=== PATIENT | female | born 1975 | race Caucasian/White ===

== ENCOUNTER 2025-04-16 09:30 | Emergency (ER) | payer OTHER, SELFPAY ==
[2025-04-16 09:33] VITALS: BP 114/77
[2025-04-16 10:42] LABS: Hematocrit 34.6 % (37.0-47.0); Hemoglobin 11.8 g/dL (12.0-16.0); Mean Corp Hgb Conc. 34.1 g/dL (33.0-37.0); Mean Corpuscular Volume 92.8 fL (81.0-99.0); Nucleated Red Blood Cells % 0 %; Platelet Count 207 10^3/uL (130-400); Red Cell Dist. Width 12.6 % (11.5-14.5)
[2025-04-16 10:57] LABS: ALT (SGPT) 33 U/L (0-35); AST (SGOT) 21 U/L (14-36); Albumin 4.5 g/dl (3.5-5.0); Alkaline Phosphatase 53 U/L (38-126); Blood Urea Nitrogen 20 mg/dl (7-17); Calcium 9.1 mg/dl (8.4-10.2); Carbon Dioxide 27 mmol/L (22-30); Chloride 106 mmol/L (98-107); Glucose 95 mg/dl (70-99); Potassium 4.2 mmol/L (3.5-5.1); Sodium 139 mmol/L (135-145); Total Protein 7.1 g/dl (6.3-8.2); eGFR > 60.00
[2025-04-16 11:30] VITALS: BMI 25.9
[2025-04-16 11:32] VITALS: BP 127/89
--- NOTE | 2025-04-16 11:32 | ED.GENMED ---
History of Present Illness
<Cecilia Victoria DO - Last Filed: 04/17/25 06:07>
General
Chief Complaint: Abdominal Pain
Time Seen by Provider: 04/16/25 11:02
History of Present Illness
History of Present Illness:
49-year-old female without significant past medical history presenting for acute onset of right lower quadrant pain. Patient reports that she woke up this morning with severe right lower quadrant pain. Feels that the pain was radiating slightly to
the left lower quadrant. Reports history of in the past, otherwise no abdominal surgeries. Denies nausea or vomiting. Last bowel movement was yesterday. Denies fever. Does note that she has been passing some gas with some improvement
of symptoms. Pain however still there. Denies any history of ovarian cysts. Denies additional acute medical complaints
Phy Exam
<Cecilia Victoria DO - Last Filed: 04/17/25 06:07>
Physical Exam
Physical Exam:
General: Well-appearing, no clinical signs of dehydration, nontoxic and in no acute distress
HEENT: protecting airway
Neck: appears supple
CV: Normal heart rate, regular rhythm, no evidence of cyanosis
Resp: No accessory muscle use, no increased work of breathing, lungs clear to auscultation bilaterally
Abd: Soft and non-distended, mild tenderness to the right lower quadrant without rebound or guarding
Extremities: No deformities, no swelling
Neuro: alert, no focal neurologic deficit
: deferred
Rectal: deferred
Psych: Normal affect
Skin: Intact
Course
<Cecilia Victoria DO - Last Filed: 04/17/25 06:07>
Orders/Labs/Results
Orders:
Orders
04/16/25 10:31
CMP [Comprehensive Metabolic Panel] Urgent
Complete Blood Count/With Diff Urgent
HCG, Serum Qualitative Screen Urgent
Comment: ADD
04/16/25 11:23
Add On- LAB Urgent
Tests Added?: seru
CT Abd/pel W Iv And Oral Contr Urgent
Comment:
Reason For Exam: RLQ pain, r/o appe
Iohexol [Omnipaque] See Protocol PO NOW STA
04/16/25 11:55
Urinalysis Reflex To Culture Urgent
Date Specimen was Collected: 04/16/25
Time Specimen was Collected: 11:30
Urine Microscopic Reflex Cult Urgent
Urine Culture Urgent
JIGAR Source: U
Specimen Description:
Date Specimen was Collected: 04/16/25
Time Specimen was Collected: 11:30
Abnormal Lab Results
04/16/25 04/16/25
10:31 11:55
RBC 3.73 L 10^6/uL
(4.20-5.40)
Hgb 11.8 L g/dL
(12.0-16.0)
Hct 34.6 L %
(37.0-47.0)
MCH 31.6 H pg
(27.0-31.0)
MPV 11.1 H fL
(7.4-10.4)
BUN 20 H mg/dl
(7-17)
Leukocyte Esterase Rfl 1+ A
(Negative)
Urine Bacteria (Reflex) Few A
(Negative)
04/16/25 10:31
04/16/25 10:31
Vital Signs
Initial and Last Documented VS:
Initial Vital Signs
Temp Pulse Resp BP Pulse Ox
97.7 F 70 18 114/77 98
04/16/25 09:33 04/16/25 09:33 04/16/25 09:33 04/16/25 09:33 04/16/25 09:33
Last Documented Vital Signs
Temp Pulse Resp BP Pulse Ox
98.5 F 67 20 127/89 96
04/16/25 11:32 04/16/25 11:32 04/16/25 11:32 04/16/25 11:32 04/16/25 11:35
<Ramos Ronquillo MD - Last Filed: 04/16/25 15:54>
Orders/Labs/Results
Orders:
Orders
04/16/25 10:31
CMP [Comprehensive Metabolic Panel] Urgent
Complete Blood Count/With Diff Urgent
HCG, Serum Qualitative Screen Urgent
Comment: ADD
04/16/25 11:23
Add On- LAB Urgent
Tests Added?: seru
CT Abd/pel W Iv And Oral Contr Urgent
Comment:
Reason For Exam: RLQ pain, r/o appe
Iohexol [Omnipaque] See Protocol PO NOW STA
04/16/25 11:55
Urinalysis Reflex To Culture Urgent
Date Specimen was Collected: 04/16/25
Time Specimen was Collected: 11:30
Urine Microscopic Reflex Cult Urgent
Urine Culture Urgent
JIGAR Source: U
Specimen Description:
Date Specimen was Collected: 04/16/25
Time Specimen was Collected: 11:30
Abnormal Lab Results
04/16/25 04/16/25
10:31 11:55
RBC 3.73 L 10^6/uL
(4.20-5.40)
Hgb 11.8 L g/dL
(12.0-16.0)
Hct 34.6 L %
(37.0-47.0)
MCH 31.6 H pg
(27.0-31.0)
MPV 11.1 H fL
(7.4-10.4)
BUN 20 H mg/dl
(7-17)
Leukocyte Esterase Rfl 1+ A
(Negative)
Urine Bacteria (Reflex) Few A
(Negative)
04/16/25 10:31
04/16/25 10:31
Vital Signs
Initial and Last Documented VS:
Initial Vital Signs
Temp Pulse Resp BP Pulse Ox
97.7 F 70 18 114/77 98
04/16/25 09:33 04/16/25 09:33 04/16/25 09:33 04/16/25 09:33 04/16/25 09:33
Last Documented Vital Signs
Temp Pulse Resp BP Pulse Ox
98.5 F 67 20 127/89 96
04/16/25 11:32 04/16/25 11:32 04/16/25 11:32 04/16/25 11:32 04/16/25 11:35
<Cecilia Victoria DO - Last Filed: 04/17/25 06:07>
MDM/Problems Addressed
MDM/Problems Addressed:
49-year-old female presenting for acute onset of right lower quadrant pain. Vital signs on arrival are normal.
On exam, patient is resting comfortably, no acute distress, nontoxic. Minimal tenderness to the right lower quadrant. Appendicitis is certainly consideration, lower suspicion given acute onset of symptoms, improvement of pain since onset. Suspect
possible gas pain, notes some improvement after possible flatus. Ovarian torsion is a consideration versus ruptured ovarian cyst. Less suspicion for torsion given exam and comfortable appearance. Labs obtained prior to my assessment,
unremarkable, no leukocytosis. Given focal residual symptoms, cannot safely rule out acute appendicitis. For this reason we will proceed with CT imaging.
<Cecilia Victoria DO - Last Filed: 04/17/25 06:07>
*Pulse Oximetry
SaO2: 96
Oxygen Mode of Delivery: Room air
Patient hypoxic: no
*Critical Care Note
Total Time (30-74mins, 75-104mins- exclusive of procedures): Not Applicable
<Ramos Ronquillo MD - Last Filed: 04/16/25 15:54>
Update Note
Update Note:
UPDATE (Ramos Ronquillo MD)
I have seen and evaluated the patient after signout and reviewed all labs and imaging.
Focused HPI: 49-year-old female presents for evaluation of abdominal pain that started this morning and had been consistent throughout the day. She reports pain mainly in the right lower quadrant. Associated with flatulence/gas. She says that
pain has improved after passing some gas and having a bowel movement. No vomiting or fever, no urinary symptoms or any other acute complaints. Prior C-sections noted no other abdominal surgeries.
Physical exam: Awake alert no distress. Vital signs normal. Abdomen soft�during my assessment completely nontender.
Medical Decision Makin-year-old female presents for right lower quadrant abdominal pain since this morning associated with flatulence. She had lab work sent off including a CBC which shows marginal anemia but no leukocytosis or bandemia. CMP
no clinically significant abnormalities. Her hCG is negative. Her urinalysis appears likely contaminated but no significant amount of pyuria to suggest that this is infection especially in the absence of urinary symptoms. CT is pending.
CT abdomen pelvis shows small ovarian cyst on the right, also moderate amount of fecal material in the colon. Also degenerative disease of the vertebra. My impression is that this is likely constipation/gas pain as her symptoms resolved after
passing gas and she has a benign abdomen at present making it somewhat less likely that ovarian cyst is the etiology of her symptoms although this is also a consideration. Stable for discharge advised to follow-up with her primary doctor. Provided
copy of CT for follow-up. All questions answered.
ED Attending Note
<Cecilia Victoria DO - Last Filed: 04/17/25 06:07>
-
Portions of this chart may have been created with voice recognition software.� Occasional wrong word or��sound alike� substitutions may have occurred due to the inherent limitations of voice recognition software.
Discharge Plan
Departure
Patient Disposition: Home (Routine Discharge)
Date of Disposition: 04/16/25
Time of Disposition: 15:53
Patient with high blood pressure during this ER visit?: No
Condition: Good
Discharge Problem:
Abdominal pain, Ovarian cyst
Instructions: Ovarian cysts, Abdominal Pain
Prescriptions:
No Action
No Current Medications
0
Referrals:
UNKNOWN - PT NOT,INTERVIEWE [Unknown Provider]
Activity Restrictions/Additional Instructions:
You were seen in the emergency department for abdominal pain
You were found to have reassuring laboratory analysis and CT imaging of your abdomen.
Please follow-up closely with your primary care physician.
Return to the emergency department for any worsening of your symptoms, or any development of chest pain, difficulty breathing, abdominal pain with persistent vomiting and inability to tolerate food or liquid by mouth (concern for dehydration),
weakness, headache or confusion, fever greater than 100.4, or any additional symptoms that are concerning to you.
Thank you for choosing [facility].
Interventions
Interventions:
*Risk Screen - Suicide Last Done: 04/16/25 09:33
*General Assessment Last Done: 04/16/25 09:33
*Neglect/Abuse Screening Last Done: 04/16/25 11:32
*ED- Fall Risk Assessment Last Done: 04/16/25 11:32
*ED COVID-19 Vaccine History Last Done: 04/16/25 11:32
*Nursing Disposition Last Done: 04/16/25 15:57
JM-Csxlzl-Wzchjoshpb Assessment Last Done: 04/16/25 11:32
Discharge Date and Time
Discharge Date/Time: 04/16/25 16:00
Print Language: [id number]
[2025-04-16] MEDS: OMNIPAQUE 50 ML PO (11:44)
[2025-04-16 12:07] LABS: Urine Character Clear (Clear)
[2025-04-16 12:14] LABS: Urine Red Blood Cell 0-2 /HPF (0-2)
[2025-04-16 13:37] LABS: HCG, Serum Qualitative Screen Negative
== END 2025-04-16 16:00 | disposition home or self-care (01) ==
LOC: EMR 09:30
PROVIDERS: EMERGENCY PHYSICIAN Student in an Organized Health Care Education/Training Program; FAMILY PHYSICIAN Nurse Practitioner Family
DX: R10.31 Right lower quadrant pain (principal); N83.201 Unspecified ovarian cyst, right side
CPT/HCPCS: 99285; 74177; 80053; 81003; 81015; 84703; 85025; 87086; Q9967